=== PATIENT | male | born 1970 | race Caucasian/White ===

== ENCOUNTER 2017-01-06 17:17 | Emergency (ER) | payer OTHER ==
[~2017-01-06] VITALS: Ht 182.9 cm; Wt 93.4 kg
--- NOTE | ~2017-01-06 | EKG ---
[facility] [address] [place] [address] ELECTROCARDIOGRAM REPORT Name: DEVIN CURRAN Room #: DEP Harsha#: [id number] Admission: 01/06/17 Attend Phys: Discharge: 01/06/17 Date of : 72 Report #: [id number] THIS REPORT FOR: //name// [facility] ED Test Date: 2017-01-06 Test Time: 17:52:06 Pat Name: DEVIN CURRAN Department: Room: Gender: Behavioral Intervention Specialist: [id number] : 1970 Requested By: Nimo Ibrahim Order Number: [id number] MD: Naseem Walden Measurements Intervals [place] Rate: 76 P: 19 ME: 135 QRS: 74 QRSD: 94 T: 55 QT: 382 QTc: 430 Interpretive Statements Sinus rhythm Baseline wander in lead(s) V4 No previous ECG available for comparison Electronically Signed On 01-07-2017 13:52:09 CDT by Naseem Walden [email or web address] <ELECTRONICALLY SIGNED> By: Naseem Walden MD, [facility] 01/07/17 1352 [id number] Naseem Walden MD, FACC /EPI
[2017-01-06] MEDS ORDERED: ATIVAN1 MG PO (17:49)
[2017-01-06 18:50] LABS: ABSOLUTE NEUTROPHILS 4.5 thou/uL (1.4-8.2); BASOPHILS 0.9 % (0.0-2.0); EOSINOPHILS 1.3 % (0.0-3.0); HEMATOCRIT 45.3 % (42.0-52.0); HEMOGLOBIN 14.9 gm/dL (14.0-18.0); LYMPHOCYTES 30.7 % (24.0-44.0); MANUAL DIFF NO; MCH 28.8 pg (26.0-34.0); MCHC 32.9 g/dL (28.0-37.0); MCV 87.7 fL (80.0-100.0); MONOCYTES 7.8 % (1.0-8.0); PLATELET COUNT 243 thou/uL (150-400); POLYS 59.3 % (36.0-66.0); RBC 5.16 mil/uL (4.50-6.00); WBC 7.6 thou/uL (4.0-11.0)
[2017-01-06 19:00] LABS: ANION GAP 9 mmol/L (7-16); BUN 13 mg/dL (7-18); CHLORIDE 104 mmol/L (98-107); CO2 28 mmol/L (21-32); CREATININE 1.1 mg/dL (0.7-1.3); GLUCOSE 83 mg/dL (74-106); POTASSIUM 3.6 mmol/L (3.5-5.1); SODIUM 141 mmol/L (136-145)
[2017-01-06 19:09] LABS: ALBUMIN 3.8 g/dL (3.4-5.0); ALKALINE PHOSPHATASE 62 U/L (46-116); DIRECT BILIRUBIN 0.1 mg/dL (<0.1-0.3); SGOT 24 U/L (15-37); SGPT 31 U/L (30-65); TOTAL BILIRUBIN 0.7 mg/dL (<0.1-1.0); TOTAL PROTEIN 7.5 g/dL (6.4-8.2); TROPONIN-I < 0.04 ng/mL (<0.04-0.07)
[2017-01-06] MEDS ORDERED: VALIUM2 MG PO (20:51)
[2017-01-06 20:53] VITALS: BP 135/90
== END 2017-01-06 20:54 | disposition home or self-care (01) ==
LOC: ER 17:17
PROVIDERS: Emergency Medicine
DX: R51 Headache (principal); R42 Dizziness and giddiness; R10.13 Epigastric pain